=== PATIENT | female | born 1985 | race Hispanic/Latino ===

== ENCOUNTER 2021-03-19 13:40 | Emergency (ER) | payer SELFPAY ==
[2021-03-19] MEDS ORDERED: LIDOCAINE 1% 20 ML MDV ONE (16:29)
[2021-03-19] MEDS ORDERED: AMOX/K CLAV 875 MG TAB ONE (16:41)
[2021-03-19] MEDS ORDERED: TETANUS & DIPHTHERIA TOX,ADULT 0.5 ML VIAL ONE (16:42)
--- NOTE | 2021-03-19 17:29 | ER ---
Nurse's Notes [facility] Name: Zaira Barboza Age: 35 yrs Sex: Female : 1985 Arrival Date: 03/19/2021 Time: 13:49 Bed Treatment Private MD: Diagnosis: Bitten by dog;Laceration without foreign body of lower leg Presentation: 03/19 13:49 Chief complaint: EMS states: was feeding sister's dogs and they were fighting, iw laceration to left leg above ankle, animal control on scene. Coronavirus screen: At this time, the client does not indicate any symptoms associated with coronavirus-19. Ebola Screen: Patient negative for fever greater than or equal to 101.5 degrees Fahrenheit, and additional compatible Ebola Virus Disease symptoms Patient denies exposure to infectious person. Patient denies travel to an Ebola-affected area in the 21 days before illness onset. No symptoms or risks identified at this time. Initial Sepsis Screen: Does the patient meet any 2 criteria? No. Patient's initial sepsis screen is negative. Does the patient have a suspected source of infection? No. Patient's initial sepsis screen is negative. Risk Assessment: Do you want to hurt yourself or someone else? Patient reports no desire to harm self or others. Onset of symptoms was March 19, 2021. 13:49 Method Of Arrival: EMS: [facility] iw 13:49 Acuity: BERYL 4 iw 13:51 Care prior to arrival: Medication(s) given: Tylenol, 1000 mg. iw Triage Assessment: 16:00 General: Appears in no apparent distress. Behavior is calm, cooperative. Pain: iw Complains of pain in medial aspect of left calf and lateral aspect of left calf. Historical: - Allergies: 13:51 No Known Allergies; iw - Home Meds: 13:51 None [Active]; iw - PMHx: 13:51 None; iw Screenin:00 Abuse screen: Denies threats or abuse. Denies injuries from another. Nutritional iw screening: No deficits noted. Tuberculosis screening: No symptoms or risk factors identified. Fall Risk None identified. Assessment: 16:20 [facility]assessment[facility] iw Vital Signs: 17:33 BP 101 / 67; Pulse 97; Resp 18; Temp 97.0; Pulse Ox 97% on R/A; Weight 82.1 kg; Height em1 5 ft. 3 in. (160.02 cm); Pain 8/10; 17:33 Body Mass Index 32.06 (82.10 kg, 160.02 cm) em1 ED Course: 13:49 Patient arrived in ED. iw 13:50 Triage completed. iw 15:39 Natalya Thomason FNP-C is [facility]. kb 15:39 Bakari Miller MD is Attending Physician. kb 16:07 Arm band placed on. iw 16:40 Assist provider with laceration repair on medial aspect of left calf and lateral aspect iw of left calf. Patient did not have IV access during this emergency room visit. 17:32 Wound care: was dressed with Kerlix, non-adhesive dressing. em1 17:35 Ritu Orozco, RN is Primary Nurse. iw Administered Medications: 16:24 Drug: Tetanus-Diphtheria Toxoid Adult 0.5 ml {Olive Grower: [employer]. Exp: ap3 10/05/2022. Lot #: [id number]. } Route: IM; Site: left deltoid; 16:48 Follow up: Response: No adverse reaction iw 16:24 Drug: Augmentin (Amoxicillin-Clavulanate) 875 mg Route: PO; ap3 16:40 Follow up: Response: No adverse reaction iw 17:00 Drug: Lidocaine (1 %) 1 vials Volume: 20 ml; Route: Infiltration; iw Outcome: 17:29 Discharge ordered by . kb 17:42 Discharged to home ambulatory, with family. iw 17:42 Condition: good 17:42 Discharge instructions given to patient, Instructed on discharge instructions, follow up and referral plans. medication usage, Demonstrated understanding of instructions, follow-up care, medications, Prescriptions given X 1. 17:43 Patient left the ED. iw Signatures: Natalya Thomason FNP-C FNP-Ritu Casas, RN RN iw Tim Vaughn em1 Purnima Fatima RN RN ap3
--- NOTE | 2021-03-19 17:29 | EDPHYS ---
Physician Documentation [facility] Name: Zaira Barboza Age: 35 yrs Sex: Female : 1985 Arrival Date: 03/19/2021 Time: 13:49 Bed Treatment Private MD: ED Physician Bakari Miller HPI: 03/19 17:27 This 35 yrs old Female presents to ER via EMS with complaints of Dog Bite. kb 17:27 The patient was bitten on the medial aspect of left calf and lateral aspect of left kb calf, by a dog, while trying to stop animals from fighting, at home. Onset: The symptoms/episode began/occurred just prior to arrival. Animal information: The animal was reported to appear healthy. Animal's vaccinations are up to date. Secondary to the bite the patient reports multiple lacerations, pain. Associated signs and symptoms: Pertinent positives: pain at site. Severity of symptoms: At their worst the symptoms were moderate, in the emergency department the symptoms are unchanged. The patient has not experienced similar symptoms in the past. The patient has not recently seen a physician. Pt reports she was feeding her dogs and they started fighting. states she didn't want one of them to get hurt so she tried to break them apart and got bit. Historical: - Allergies: 13:51 No Known Allergies; iw - Home Meds: 13:51 None [Active]; iw - PMHx: 13:51 None; iw ROS: 17:24 Constitutional: Negative for fever, chills, and weight loss. kb 17:24 Skin: Positive for laceration(s), of the lateral aspect of left calf and medial aspect of left calf. 17:24 All other systems are negative. Exam: 17:24 Constitutional: This is a well developed, well nourished patient who is awake, alert, kb and in no acute distress. Head/Face: Normocephalic, atraumatic. ENT: Moist Mucous membranes Respiratory: Respirations even and unlabored. No increased work of breathing, no retractions or nasal flaring. MS/ Extremity: Pulses equal, no cyanosis. Neurovascular intact. Full, normal range of motion. Neuro: Awake and alert, GCS 15, oriented to person, place, time, and situation. Moves all extremities. Normal gait. Psych: Awake, alert, with orientation to person, place and time. Behavior, mood, and affect are within normal limits. 17:24 Skin: injury, abrasion(s), small abrasion noted, of the left bicep, laceration(s), the wound is approximately 5 cm(s), of the medial aspect of left calf, the second wound is approximately 2 cm(s), of the lateral aspect of left calf, the third wound is approximately 4 cm(s), of the lateral aspect of left calf, that can be described as clean, no foreign body, linear, with mild bleeding. Vital Signs: 17:33 BP 101 / 67; Pulse 97; Resp 18; Temp 97.0; Pulse Ox 97% on R/A; Weight 82.1 kg; Height em1 5 ft. 3 in. (160.02 cm); Pain 8/10; 17:33 Body Mass Index 32.06 (82.10 kg, 160.02 cm) em1 Laceration: 17:25 Wound Repair of 5cm ( 2.0in ) subcutaneous laceration to medial aspect of left calf. kb Linear shaped.. Distal neuro/vascular/tendon intact. Anesthesia: Wound infiltrated with 6 mls of 1% lidocaine. Wound prep: Extensive cleansing with hibiclenz by me, Copious irrigation. Skin closed with 5 5-0 Prolene using simple sutures and sterile technique. Patient tolerated well. 17:25 Wound Repair of 2cm ( 0.8in ) subcutaneous laceration to lateral aspect of left calf. kb Linear shaped.. Distal neuro/vascular/tendon intact. Anesthesia: Wound infiltrated with 3 mls of 1% lidocaine. Wound prep: Extensive cleansing with hibiclenz by me, Wound irrigation with saline by ma, Copious irrigation. Skin closed with 2 1-0 Prolene using simple sutures and sterile technique. Patient tolerated well. 17:25 Wound Repair of 4cm ( 1.6in ) subcutaneous laceration to lateral aspect of left calf. kb Linear shaped.. Distal neuro/vascular/tendon intact. Anesthesia: Wound infiltrated with 4 mls of 1% lidocaine. Wound prep: Extensive cleansing with betadine by me, Wound irrigation with saline by me, Copious irrigation. Skin closed with 4 5-0 Prolene using simple sutures and sterile technique. Patient tolerated well. MDM: 15:40 Patient medically screened. [facility] 17:23 Data reviewed: vital signs, nurses notes. Data interpreted: Pulse oximetry: on room air kb is 100 %. Interpretation: normal. Counseling: I had a detailed discussion with the patient and/or guardian regarding: the historical points, exam findings, and any diagnostic results supporting the discharge/admit diagnosis, the need for outpatient follow up, a family practitioner, to return to the emergency department if symptoms worsen or persist or if there are any questions or concerns that arise at home. 03/19 16:02 Order name: Dressing - Wound; Complete Time: 17:32 kb 03/19 16:02 Order name: Gloves, Sterile; Complete Time: 17:32 kb 03/19 16:02 Order name: Prolene, Sutures; Complete Time: 17:32 kb 03/19 16:02 Order name: Setup Suture Tray; Complete Time: 17:32 kb 03/19 16:02 Order name: Misc. Order: call Carlitos MICHAUD for case number; Complete Time: 16:20 kb Administered Medications: 16:24 Drug: Tetanus-Diphtheria Toxoid Adult 0.5 ml {Marker Machine Attendant: [employer]. Exp: ap3 10/05/2022. Lot #: [id number]. } Route: IM; Site: left deltoid; 16:48 Follow up: Response: No adverse reaction iw 16:24 Drug: Augmentin (Amoxicillin-Clavulanate) 875 mg Route: PO; ap3 16:40 Follow up: Response: No adverse reaction iw 17:00 Drug: Lidocaine (1 %) 1 vials Volume: 20 ml; Route: Infiltration; iw Disposition: 03/20 07:55 Co-signature as Attending Physician, Bakari Miller MD I agree with the assessment and jair plan of care. Disposition Summary: 03/19/21 17:29 Discharge Ordered Location: Home kb Condition: Stable kb Diagnosis - Bitten by dog kb - Laceration without foreign body of lower leg kb Followup: kb - With: Emergency Department - When: As needed - Reason: Worsening of condition Followup: kb - With: Private Physician - When: 2 - 3 days - Reason: Recheck today's complaints, Continuance of care, Re-evaluation by your physician Discharge Instructions: - Discharge Summary Sheet kb - Animal Bite, Adult, [id number] kb Forms: - Medication Reconciliation Form kb - Thank You Letter kb - Antibiotic Education kb - Prescription Opioid Use kb Prescriptions: - Augmentin 875-125 mg Oral Tablet - take 1 tablet by ORAL route every 12 hours for 10 days; 20 tablet; Refills: 0, kb Product Selection Permitted Signatures: Natalya Thomason FNP-C FNP-Ckb Anderson, Corey, MD MD cha Williams, Irene RN RN iw Purnima Fatima RN RN ap3
[2021-03-19 17:51] VITALS: BP 101/67; TEMP 97; O2SAT 97
== END 2021-03-19 17:43 | disposition home or self-care (01) ==
LOC: ER 13:40
PROC: 0JQP0ZZ Repair Left Lower Leg Subcutaneous Tissue and Fascia, Open Approach (ICD-10-PCS; principal; 2021-03-19)
DX: S81.812A Laceration without foreign body, left lower leg, initial encounter (principal); W54.0XXA Bitten by dog, initial encounter; Y93.89 Activity, other specified; Y92.009 Unspecified place in unspecified non-institutional (private) residence as the place of occurrence of the external cause; Z23 Encounter for immunization
CPT/HCPCS: 90471; 90714; 99284